=== PATIENT | male | born 1945 | race Caucasian/White ===

== ENCOUNTER 2020-11-11 10:53 | Emergency (ER) | payer MEDICARE, OTHER, SELFPAY ==
[2020-11-11] VITALS (12 sets, daily range): BP systolic 114–140; BP diastolic 67–88; PULSE 80–88; RESP 14–18; TEMP 37; O2SAT 96–98
--- NOTE | ~2020-11-11 | XR_ITS ---
EXAMINATION: XR elbow RT min 3V DATE: 11/11/2020 12:13 INDICATION: Right elbow injury and pain. TECHNIQUE: 4 views of right elbow were obtained. COMPARISON: None. FINDINGS: Bone alignment is normal. No fracture. Joint spaces are well maintained. There is no elbow joint effusion. IMPRESSION: 1. No fracture. Reviewed, dictated and finalized at location A. IMPRESSION: 1. No fracture.
--- NOTE | ~2020-11-11 | CT_ITS ---
EXAMINATION: CT brain wo con DATE: 11/11/2020 11:42 INDICATION: Head injury. Confusion. TECHNIQUE: Computed tomography (CT) of the head was performed without intravenous contrast. The mA wa s adjusted according to patient size. Iterative reconstruction technique was employed. The dose-lengt h product was 605.33 mGy-cm. COMPARISON: None FINDINGS: There are scattered areas of low attenuation in the cerebral white matter. There is no intr acranial hemorrhage, acute infarction, or abnormal intracranial mass lesion. The ventricles are john l in size. There are likely changes of ocular lens replacement surgeries. There is mild mucosal thick ening in the paranasal sinuses. The mastoid air cells are normal. IMPRESSION: 1. Mild nonspecific cerebral white matter disease, which likely represents chronic small vessel ische elzbieta disease. Reviewed, dictated and finalized at location A. IMPRESSION: 1. Mild nonspecific cerebral white matter disease, which likely represents [employer] kathy small vessel ischemic disease.
--- NOTE | ~2020-11-11 | CT_ITS ---
EXAMINATION: CT cervical spine wo con DATE: 11/11/2020 11:42 INDICATION: Head injury. TECHNIQUE: Computed tomography (CT) of the cervical spine was performed without intravenous contrast. Automated exposure control and iterative reconstruction technique were employed. The dose-length pro duct was 370.59 mGy-cm. COMPARISON: None FINDINGS: Bone alignment is normal. Vertebral body heights are normal. There is mildly decreased disc height at C3-C4, C5-C6, and C6-C7. There is a fracture of right T1 transverse process. There are fra ctures of right first and second ribs. There is a tiny right pneumothorax. The following disc levels are specifically discussed: C2-C3: There is moderate right and mild left uncovertebral joint osteoarthritis. There is moderate bi lateral facet joint osteoarthritis. There is no neural foraminal stenosis. There is no central canal stenosis. C3-C4: There is severe right and mild left uncovertebral joint osteoarthritis. There is severe right and moderate left facet joint osteoarthritis. There is moderate right and mild left neural foraminal stenosis. There is mild central canal stenosis. C4-C5: There is moderate bilateral uncovertebral joint osteoarthritis. There is severe bilateral face t joint osteoarthritis. There is mild bilateral neural foraminal stenosis. There is mild central jade l stenosis. C5-C6: There is severe bilateral uncovertebral joint osteoarthritis. There is severe bilateral facet joint osteoarthritis. There is mild bilateral neural foraminal stenosis. There is mild central canal stenosis. C6-C7: There is severe bilateral uncovertebral joint osteoarthritis. There is severe bilateral facet joint osteoarthritis. There is mild bilateral neural foraminal stenosis. There is mild central canal stenosis. C7-T1: There is no uncovertebral joint osteoarthritis. There is mild bilateral facet joint osteoarthr itis. There is no neural foraminal stenosis. There is no central canal stenosis. IMPRESSION: 1. Fractures of right T1 transverse process and right first and second ribs. 2. Tiny right apical pneumothorax. 3. Mild cervical spondylosis. Reviewed, dictated and finalized at location A.
--- NOTE | ~2020-11-11 | XR_ITS ---
EXAMINATION: XR chest 1V portable DATE: 11/11/2020 12:25 INDICATION: Chest injury. TECHNIQUE: A single frontal view of the chest was obtained on 2 radiographs. COMPARISON: None. FINDINGS: Calcified pulmonary nodules are consistent with old granulomatous disease. There are periph eral airspace opacities in right mid and upper lung zones. There is no pleural effusion or visible pn eumothorax. The heart size is normal. There are fractures of right first-seventh ribs. There is a com minuted fracture of right clavicle. IMPRESSION: 1. Peripheral airspace opacities in right mid and upper lung zones, likely contusion. 2. Fractures of right first-seventh ribs. 3. Comminuted fracture of right clavicle. Reviewed, dictated and finalized at location A. IMPRESSION: 1. Peripheral airspace opacities in right mid and upper lung zones, likely cont usion. 2. Fractures of right first-seventh ribs. 3. Comminuted fracture of right clavicle.
--- NOTE | ~2020-11-11 | XR_ITS ---
EXAMINATION: XR hip RT min 3V w AP pelvis DATE: 11/11/2020 12:13 INDICATION: Pelvis injury. TECHNIQUE: An anteroposterior view of the pelvis and 3 views of right hip were obtained. COMPARISON: None. FINDINGS: There is a total right hip arthroplasty in near-anatomic alignment. There is a comminuted f racture of right ilium involving the crest and anterior superior iliac spine. There is moderate left hip osteoarthritis. There are surgical clips overlie the pelvis, likely from hernia repair. IMPRESSION: 1. Comminuted fracture of right ilium. 2. 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 3. Moderate left hip osteoarthritis. Reviewed, dictated and finalized at location A.
--- NOTE | ~2020-11-11 | XR_ITS ---
EXAMINATION: XR shoulder RT min 2V DATE: 11/11/2020 12:13 INDICATION: Right shoulder injury. TECHNIQUE: 4 views of right shoulder were obtained. COMPARISON: None. FINDINGS: There is a comminuted fracture of right clavicle involving the middle and distal thirds. Th e main distal fracture fragment demonstrates 14 degrees inferior angulation. There is mild osteoarthr itis of glenohumeral joint and acromioclavicular joint. There are multiple right rib fractures. There is a fracture of the acromion of right scapula. IMPRESSION: 1. Fractures of right clavicle, acromion of right scapula, and multiple right ribs. 2. Polyarticular osteoarthritis. Reviewed, dictated and finalized at location A. IMPRESSION: 1. Fractures of right clavicle, acromion of right scapula, and multiple right r ibs. 2. Polyarticular osteoarthritis.
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
--- NOTE | 2020-11-11 12:23 | PC.NURSE ---
bettina-son of pt. [phone]
[2020-11-11] MEDS: ONDANSETRON INJ 4 MG/2 ML VIAL (12:27)
[2020-11-11] MEDS: MORPHINE SULFATE (*CRX) 4 MG/ML INJ (12:27)
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
--- NOTE | 2020-11-11 13:21 | PC.NURSE ---
[facility] has arrived and is aware that pt is going to [facility]
[2020-11-11] MEDS: fentaNYL CITRATE INJ (*CRX) 100 MCG/2 ML VIAL (13:44)
== END 2020-11-11 13:20 | disposition short-term general hospital (02) ==
PROVIDERS: Emergency Provider Nurse Practitioner
DX: S22.018A Other fracture of first thoracic vertebra, initial encounter for closed fracture (principal); S22.41XA Multiple fractures of ribs, right side, initial encounter for closed fracture; S42.031A Displaced fracture of lateral end of right clavicle, initial encounter for closed fracture; S32.391A Other fracture of right ilium, initial encounter for closed fracture; Z87.891 Personal history of nicotine dependence; M47.812 Spondylosis without myelopathy or radiculopathy, cervical region; R90.82 White matter disease, unspecified; M19.011 Primary osteoarthritis, right shoulder; M16.12 Unilateral primary osteoarthritis, left hip; Z96.641 Presence of right artificial hip joint; V17.4XXA Pedal cycle driver injured in collision with fixed or stationary object in traffic accident, initial encounter; Y93.55 Activity, bike riding
CPT/HCPCS: 70450; 71045; 72125; 73030; 73080; 73502; 96374; 96375; 99285; J2270; J2405; J3010